=== PATIENT | male | born 2000 | race African-American/Black ===

== ENCOUNTER 2022-09-03 13:03 | Emergency (ER) | payer OTHER ==
[~2022-09-03] VITALS: Ht 180.3 cm; Wt 70.0 kg
[2022-09-03 13:22] VITALS: BP 127/64
== END 2022-09-03 15:20 | disposition home or self-care (01) ==
LOC: M ED 13:03
DX: F43.20 Adjustment disorder, unspecified (principal)

== ENCOUNTER 2023-06-22 19:17 | Emergency (ER) | payer OTHER ==
[~2023-06-22] VITALS: Ht 177.8 cm; Wt 72.0 kg
[2023-06-23 02:15] VITALS: BP 127/75; TEMP 96.9; O2SAT 99
== END 2023-06-23 02:19 | disposition home or self-care (01) ==
LOC: M ED 19:17
DX: S62.397A Other fracture of fifth metacarpal bone, left hand, initial encounter for closed fracture (principal); X58.XXXA Exposure to other specified factors, initial encounter; Y92.410 Unspecified street and highway as the place of occurrence of the external cause; Y93.9 Activity, unspecified; Y99.9 Unspecified external cause status

== ENCOUNTER → 2023-09-18 | Outpatient (CLI) | payer OTHER | LOC: M SOG 07:53 | PROVIDERS: ATTEND Physician Assistant | DX: S62.637D Displaced fracture of distal phalanx of left little finger, subsequent encounter for fracture with routine healing (principal); M25.542 Pain in joints of left hand; Y93.9 Activity, unspecified; Y92.9 Unspecified place or not applicable ==

== ENCOUNTER 2024-02-23 18:41 | Emergency (ER) | payer OTHER ==
[~2024-02-23] VITALS: Ht 177.8 cm; Wt 70.0 kg
[2024-02-23] MEDS: KETOROLAC 30 MG/ML 1ML VIAL IV ONE (19:40)
[2024-02-23 19:43] LABS: BASO % 0.2 % (0.0-1.0); EOS % 0.8 % (0.0-3.0); HEMATOCRIT 45.4 % (42.0-52.0); HEMOGLOBIN 15.3 g/dl (13.5-17.5); LYMPH # 1.3 10^3/uL (1.5-5.0); LYMPH % 24.7 % (24.0-44.0); MEAN CORPUSCULAR HEMOGLOBIN 30.8 pg (27.0-33.0); MEAN CORPUSCULAR HGB CONC 33.7 g/dl (32.0-36.5); MEAN CORPUSCULAR VOLUME 91.5 fl (80.0-96.0); MONO # 0.3 10^3/uL (0.0-0.8); MONO % 5.9 % (2.0-8.0); NEUTROPHILS # 3.5 10^3/uL (1.5-8.5); NEUTROPHILS % 68.2 % (36.0-66.0); PLATELET COUNT, AUTOMATED 250 10^3/uL (150-450); RED BLOOD COUNT 4.96 10^6/uL (4.30-6.10); WHITE BLOOD COUNT 5.1 10^3/uL (4.0-10.0)
[2024-02-23 20:06] LABS: LIPASE 33 U/L (12-53)
[2024-02-23 20:08] LABS: ALBUMIN 4.1 G/DL (3.2-5.2); ALKALINE PHOSPHATASE 88 U/L (40-129); ALT/SGPT 11 U/L (7.0-40); AST/SGOT < 8 U/L (<34); BILIRUBIN,DIRECT 0.7 MG/DL (<0.4); BLOOD UREA NITROGEN 10 MG/DL (9-23); CALCIUM LEVEL 9.9 MG/DL (8.5-10.1); CARBON DIOXIDE LEVEL 30 MMOL/L (20-31); CHLORIDE LEVEL 105 MMOL/L (98-107); CREATININE FOR GFR 1.11 MG/DL (0.70-1.30); GLOMERULAR FILTRATION RATE > 60.0 (>60); GLUCOSE, FASTING 93 MG/DL (60-100); SODIUM LEVEL 140 MMOL/L (136-145); TOTAL PROTEIN 7.1 G/DL (5.7-8.2)
[2024-02-23] MEDS ORDERED: ISOVUE-370 76% 100ML VIAL As Ordered ONE (20:14)
[2024-02-23] MEDS ORDERED: PROT1TAB2 PO (20:33)
[2024-02-23] MEDS ORDERED: PEPC1TAB5 PO (20:33)
[2024-02-23] MEDS ORDERED: CARA1TAB6 PO (20:33)
[2024-02-23 20:35] VITALS: BP 120/75; TEMP 97.6; O2SAT 100
[2024-02-23] MEDS: PANTOPRAZOLE 40MG VIAL IV ONE (20:35)
== END 2024-02-23 20:56 | disposition home or self-care (01) ==
LOC: M ED 18:41
DX: K29.20 Alcoholic gastritis without bleeding (principal); F17.290 Nicotine dependence, other tobacco product, uncomplicated; F10.10 Alcohol abuse, uncomplicated
CPT/HCPCS: 74177; 80048; 80076; 83690; 85025; 93041; 96374; 96375; 99284; J1885; J2470; Q9967

== ENCOUNTER 2024-08-28 13:24 | Emergency (ER) | payer OTHER ==
[~2024-08-28] VITALS: Ht 177.8 cm; Wt 69.7 kg
[~2024-08-28 13:24] MED LIST: CARA1TAB6 PO; PEPC1TAB5 PO; PROT1TAB2 PO
[2024-08-28 13:26] VITALS: BP 134/65; TEMP 98; O2SAT 97
== END 2024-08-28 16:08 | disposition left against medical advice (07) ==
LOC: M ED 13:24
DX: Z53.21 Procedure and treatment not carried out due to patient leaving prior to being seen by health care provider (principal)

== ENCOUNTER 2024-11-29 02:35 | Emergency (ER) | payer OTHER ==
[~2024-11-29] VITALS: Ht 177.8 cm; Wt 68.9 kg
[2024-11-29 09:06] VITALS: BP 124/85; TEMP 97.9; O2SAT 100
== END 2024-11-29 09:16 | disposition home or self-care (01) ==
LOC: M ED 02:35
DX: S60.221A Contusion of right hand, initial encounter (principal); S60.512A Abrasion of left hand, initial encounter; Y92.9 Unspecified place or not applicable; Y93.9 Activity, unspecified; Y99.9 Unspecified external cause status; F10.10 Alcohol abuse, uncomplicated; Z79.899 Other long term (current) drug therapy

== ENCOUNTER 2024-12-11 18:22 | Emergency (ER) | payer OTHER ==
[~2024-12-11] VITALS: Ht 177.8 cm; Wt 70.0 kg
[2024-12-11 20:04] LABS: PLATELET COUNT, AUTOMATED 259 10^3/uL (150-450)
[2024-12-11] MEDS ORDERED: HOME MED LIST COMPLETE! XX SCH (20:20)
[2024-12-11 20:24] LABS: ETHYL ALCOHOL (ETHANOL) 0.171 % (0.000-0.010)
[2024-12-11 20:26] LABS: ALT/SGPT 23 U/L (7.0-40); AST/SGOT 24 U/L (<34); CALCIUM LEVEL 9.9 MG/DL (8.5-10.1); CARBON DIOXIDE LEVEL 28 MMOL/L (20-31); CHLORIDE LEVEL 105 MMOL/L (98-107); CREATININE FOR GFR 1.22 MG/DL (0.70-1.30); GLOMERULAR FILTRATION RATE 84.9 (>60); POTASSIUM SERUM 4.2 MMOL/L (3.5-5.1); SALICYLATE LEVEL < 3.0 MG/DL (<30); SODIUM LEVEL 146 MMOL/L (136-145)
[2024-12-11 20:35] LABS: AMPHETAMINES LEVEL URINE NEGATIVE (NEGATIVE); BARBITURATES URINE NEGATIVE (NEGATIVE); BENZODIAZEPINES URINE NEGATIVE (NEGATIVE); CANNABINOIDS URINE NEGATIVE (NEGATIVE); COCAINE METABOLITE URINE NEGATIVE (NEGATIVE); METHADONE URINE NEGATIVE (NEGATIVE); OPIATES URINE NEGATIVE (NEGATIVE); PHENCYCLIDINE URINE NEGATIVE (NEGATIVE)
[2024-12-11 21:26] VITALS: BP 142/82; TEMP 98.1; O2SAT 98
== END 2024-12-12 01:11 | disposition home or self-care (01) ==
LOC: M ED 18:22
DX: F32.A Depression, unspecified (principal); F10.120 Alcohol abuse with intoxication, uncomplicated; F17.290 Nicotine dependence, other tobacco product, uncomplicated

== ENCOUNTER 2024-12-31 16:42 | Inpatient (IN) | payer OTHER ==
[~2024-12-31] VITALS: Ht 177.8 cm; Wt 68.2 kg
[2024-12-31 19:14] LABS: PLATELET COUNT, AUTOMATED 208 10^3/uL (150-450)
[2024-12-31] MEDS ORDERED: HOME MED LIST COMPLETE! XX SCH (19:20)
[2024-12-31 19:37] LABS: AMPHETAMINES LEVEL URINE NEGATIVE (NEGATIVE)
[2024-12-31 19:38] LABS: BARBITURATES URINE NEGATIVE (NEGATIVE); BENZODIAZEPINES URINE NEGATIVE (NEGATIVE); CANNABINOIDS URINE NEGATIVE (NEGATIVE); COCAINE METABOLITE URINE NEGATIVE (NEGATIVE); METHADONE URINE NEGATIVE (NEGATIVE); OPIATES URINE NEGATIVE (NEGATIVE); PHENCYCLIDINE URINE NEGATIVE (NEGATIVE)
[2024-12-31 19:47] LABS: SALICYLATE LEVEL < 3.0 MG/DL (<30)
[2024-12-31 19:48] LABS: ALT/SGPT 27 U/L (7.0-40); AST/SGOT 30 U/L (<34); CALCIUM LEVEL 9.1 MG/DL (8.5-10.1); CARBON DIOXIDE LEVEL 27 MMOL/L (20-31); CHLORIDE LEVEL 102 MMOL/L (98-107); CREATININE FOR GFR 1.23 MG/DL (0.70-1.30); GLOMERULAR FILTRATION RATE 83.6 (>60); POTASSIUM SERUM 3.7 MMOL/L (3.5-5.1); SODIUM LEVEL 140 MMOL/L (136-145)
[2024-12-31 19:49] LABS: ETHYL ALCOHOL (ETHANOL) < 0.003 % (0.000-0.010)
[2024-12-31] MEDS ORDERED: IBUPROFEN 400 MG TAB PO PRN (20:50)
[2024-12-31] MEDS ORDERED: MAALOX 30 ML SUSP *UDC PO PRN (20:50)
[2024-12-31] MEDS ORDERED: ACETAMINOPHEN 325 MG TAB PO PRN (20:50)
[2024-12-31] MEDS ORDERED: traZODone 50 MG TAB PO PRN (20:50)
[2024-12-31] MEDS ORDERED: MOM 30 ML SUSPENSION UDC PO PRN (20:50)
[2024-12-31 23:00] VITALS: BP 125/75; TEMP 97.9; O2SAT 98
[2025-01-01 06:26] VITALS: BP 99/55; TEMP 98.5; O2SAT 99
[2025-01-01] MEDS ORDERED: NICOTINE 14 MG/24 HR TRANSDERMAL TD PRN (11:35)
[2025-01-01 15:31] VITALS: BP 143/77; TEMP 97.2; O2SAT 100
[2025-01-02 06:33] VITALS: BP 123/59; TEMP 97.5; O2SAT 99
== END 2025-01-02 12:58 | disposition home or self-care (01) | DRG 885 ==
LOC: M ED 16:42 → M ED INP 20:47 → M PSY 22:38
PROVIDERS: ADMIT Student in an Organized Health Care Education/Training Program; ATTEND Student in an Organized Health Care Education/Training Program
DX: F39 Unspecified mood [affective] disorder (principal); M25.531 Pain in right wrist; M25.541 Pain in joints of right hand; F10.20 Alcohol dependence, uncomplicated; R45.850 Homicidal ideations; F17.200 Nicotine dependence, unspecified, uncomplicated